=== PATIENT | male | born 1995 | race Caucasian/White ===

== ENCOUNTER 2018-10-04 12:31 | Inpatient (IN) | payer BC, OTHER ==
[~2018-10-04] VITALS: Ht 185.4 cm; Wt 56.7 kg
[2018-10-04] MEDS ORDERED: DICYCLOMINE HCL 20 MG TABLET PO PRN (14:30)
[2018-10-04] MEDS ORDERED: LOPERAMIDE HCL 2 MG CAPSULE PO PRN ×2 (14:30)
[2018-10-04] MEDS ORDERED: DIAZEPAM 10 MG TABLET PO PRN ×2 (14:30)
[2018-10-04] MEDS ORDERED: MIRALAX 17 GM POWD.PACK PO PRN (14:30)
[2018-10-04] MEDS ORDERED: MAG HYDROX/AL HYDROX/SIMETH 30 ML LIQUID UDC PO PRN (14:30)
[2018-10-04] MEDS ORDERED: 5 DAY TAPER VALIUM-SERENITY PROTOCOL PO PRN (14:30)
[2018-10-04] MEDS ORDERED: LORAZEPAM 2 MG/1 ML VIAL IM PRN (14:30)
[2018-10-04] MEDS ORDERED: BUPRENORPHINE HCL 2 MG TAB.SUBL SL PRN (14:30)
[2018-10-04] MEDS: MULTIVITAMINS,THERAPEUTIC TABLET PO SCH (14:30)
[2018-10-04] MEDS ORDERED: MAGNESIUM HYDROXIDE 30 ML LIQUID UDC PO PRN (14:30)
[2018-10-04] MEDS ORDERED: ONDANSETRON 4 MG/2 ML VIAL IM PRN (14:30)
[2018-10-04] MEDS ORDERED: DIAZEPAM 5 MG TABLET PO PRN (14:30)
[2018-10-04 14:48] VITALS: BP 135/69
[2018-10-04 17:10] VITALS: BP 134/86
[2018-10-04] MEDS: DIAZEPAM 10 MG TABLET PO SCH ×2 (17:14→20:57)
[2018-10-04 17:32] LABS: *AMPHETAMINE, URINE POSITIVE (NEGATIVE); *BARBITURATE, URINE NEGATIVE (NEGATIVE); *CANNABINOID, URINE NEGATIVE (NEGATIVE); *COCCAINE, URINE NEGATIVE (NEGATIVE); *OPIATE, URINE POSITIVE (NEGATIVE); *PHENCYCLIDINE SCREEN,URINE NEGATIVE (NEGATIVE)
[2018-10-04 19:28] LABS: BASOPHILS # (AUTO) 0.1 K/uL (0.0-8.0); BASOPHILS % (AUTO) 0.6 % (0.0-2.0); EOSINOPHILS # (AUTO) 0.2 K/uL (0.0-0.7); HEMATOCRIT 41.2 % (36.7-47.1); HEMOGLOBIN 14.3 g/dL (12.5-16.3); LYMPHOCYTES # (AUTO) 2.3 K/uL (20.0-40.0); LYMPHOCYTES % (AUTO) 22.8 % (20.5-51.5); MEAN CORPUSCULAR HEMOGLOBIN 30.8 uug (23.8-33.4); MEAN CORPUSCULAR HGB CONC 35 g/dL (32.5-36.3); MEAN CORPUSCULAR VOLUME 88.7 fL (73.0-96.2); MONOCYTES # (AUTO) 0.6 K/uL (2.0-10.0); MONOCYTES % (AUTO) 6.3 % (0.0-11.0); NEUTROPHILS # (AUTO) 6.9 K/uL (1.8-8.9); NEUTROPHILS % (AUTO) 68.3 % (38.5-71.5); PLATELET COUNT (AUTO) 270 K/uL (152-348); RED BLOOD CELL COUNT(AUTO) 4.65 MIL/uL (4.06-5.63); WHITE BLOOD COUNT (AUTO) 10.1 K/uL (3.6-10.2)
[2018-10-04 19:41] LABS: ALANINE AMINOTRANSFERASE 21 U/L (16-63); ALKALINE PHOSPHATASE 99 U/L (50-136); ASPARTATE AMINOTRANSFERASE 16 U/L (15-37); BILIRUBIN,TOTAL 0.3 mg/dL (0.2-1.0); CARBON DIOXIDE 30 mmol/L (21-32); CHLORIDE 103 mmol/L (98-107); CREATININE 0.8 mg/dL (0.6-1.3); GLUCOSE 115 mg/dL (74-106); MAGNESIUM 1.9 mg/dL (1.8-2.4); POTASSIUM 3.7 mmol/L (3.5-5.1); UREA NITROGEN, BLOOD 10 mg/dL (7-18)
[2018-10-04 19:47] LABS: ETHANOL < 3 MG/DL (0-0)
[2018-10-04 19:53] LABS: THYROID STIMULATING HORMONE 1.263 mIU/mL (0.358-3.740)
[2018-10-04 20:56] VITALS: BP 132/89
[2018-10-05 00:30] VITALS: BP 112/71
[2018-10-05 04:27] VITALS: BP 108/69
[2018-10-05 08:00] VITALS: BP 109/71
[2018-10-05] MEDS: DIAZEPAM 5 MG TABLET PO SCH ×4 (08:33→20:42)
[2018-10-05] MEDS: IBUPROFEN 600 MG TABLET PO PRN ×2 (08:33→20:41)
[2018-10-05] MEDS: MULTIVITAMINS,THERAPEUTIC TABLET PO SCH (08:33)
[2018-10-05] MEDS: METHOCARBAMOL 750 MG TABLET PO PRN ×2 (08:34→20:42)
[2018-10-05] MEDS: ONDANSETRON ODT 4 MG TAB.RAPDIS SL PRN (08:37)
[2018-10-05] MEDS: BUPRENORPHINE HCL 2 MG TAB.SUBL SL SCH ×3 (08:37→20:42)
[2018-10-05] MEDS ORDERED: 4 DAY TAPER BUPRENORPHINE -SERENITY PROTOCOL SL PRN (09:00)
[2018-10-05] MEDS ORDERED: TUBERCULIN,PURIF.PROT.DERIV. 5 TU/0.1 ML TEST ID ONE (09:00)
[2018-10-05 12:00] VITALS: BP 115/52
[2018-10-05] MEDS: ACETAMINOPHEN 325 MG TABLET PO PRN (12:41)
[2018-10-05] MEDS: HYDROXYZINE PAMOATE 25 MG CAPSULE PO PRN (14:27)
[2018-10-05 16:00] VITALS: BP 125/66
[2018-10-05 20:00] VITALS: BP 113/57
[2018-10-05] MEDS: diphenhydrAMINE 50 MG CAPSULE PO PRN (20:42)
[2018-10-06 08:00] VITALS: BP 111/62
[2018-10-06] MEDS ORDERED: BUPRENORPHINE HCL 2 MG TAB.SUBL SL SCH (09:00)
[2018-10-06] MEDS: DIAZEPAM 5 MG TABLET PO SCH ×3 (09:12→21:29)
[2018-10-06] MEDS: MULTIVITAMINS,THERAPEUTIC TABLET PO SCH (09:12)
[2018-10-06 11:09] LABS: HEPATITIS B SURFACE AG Negative (Negative)
[2018-10-06 12:00] VITALS: BP 110/60
[2018-10-06] MEDS: METHOCARBAMOL 750 MG TABLET PO PRN ×2 (12:26→21:29)
[2018-10-06] MEDS: CLONIDINE HCL 0.1 MG TABLET PO PRN ×2 (12:26→21:30)
[2018-10-06] MEDS: HYDROXYZINE PAMOATE 25 MG CAPSULE PO PRN (12:26)
[2018-10-06] MEDS: IBUPROFEN 600 MG TABLET PO PRN (12:26)
[2018-10-06] MEDS: BUPRENORPHINE HCL 2 MG TAB.SUBL SL SCH ×2 (14:58→21:30)
[2018-10-06 16:00] VITALS: BP 115/62
[2018-10-06 20:00] VITALS: BP 118/77
[2018-10-06] MEDS: diphenhydrAMINE 50 MG CAPSULE PO PRN (21:29)
[2018-10-07 08:00] VITALS: BP 112/63
[2018-10-07] MEDS: DIAZEPAM 5 MG TABLET PO SCH ×2 (08:56→21:24)
[2018-10-07] MEDS: MULTIVITAMINS,THERAPEUTIC TABLET PO SCH (08:56)
[2018-10-07] MEDS: BUPRENORPHINE HCL 2 MG TAB.SUBL SL SCH ×3 (08:58→21:24)
[2018-10-07] MEDS: METHOCARBAMOL 750 MG TABLET PO PRN ×2 (08:58→21:24)
[2018-10-07 12:00] VITALS: BP 118/52
[2018-10-07] MEDS: ACETAMINOPHEN 325 MG TABLET PO PRN (12:54)
[2018-10-07 16:00] VITALS: BP 91/59
[2018-10-07 20:00] VITALS: BP 96/60
[2018-10-07 21:30] VITALS: BP 115/63
[2018-10-08 08:00] VITALS: BP 110/58
[2018-10-08] MEDS: METHOCARBAMOL 750 MG TABLET PO PRN ×2 (08:41→20:08)
[2018-10-08] MEDS: IBUPROFEN 600 MG TABLET PO PRN ×2 (08:42→21:52)
[2018-10-08] MEDS: MULTIVITAMINS,THERAPEUTIC TABLET PO SCH (08:42)
[2018-10-08] MEDS: ONDANSETRON ODT 4 MG TAB.RAPDIS SL PRN (08:42)
[2018-10-08] MEDS ORDERED: BUPRENORPHINE HCL 2 MG TAB.SUBL SL SCH (09:00)
[2018-10-08] MEDS ORDERED: DIAZEPAM 5 MG TABLET PO SCH (09:00)
[2018-10-08 12:00] VITALS: BP 115/53
[2018-10-08] MEDS ORDERED: DIPH50CA37 PO (14:10)
[2018-10-08] MEDS ORDERED: NALO4SPR NS (14:10)
[2018-10-08] MEDS ORDERED: HYDR-3895 PO (14:10)
[2018-10-08] MEDS ORDERED: METH-406 PO (14:10)
[2018-10-08] MEDS ORDERED: ONDA4TAB11 SL (14:10)
[2018-10-08] MEDS ORDERED: CLON0.1T14 PO (14:10)
[2018-10-08 16:00] VITALS: BP 114/56
[2018-10-08 20:00] VITALS: BP 118/64
[2018-10-08] MEDS: CLONIDINE HCL 0.1 MG TABLET PO PRN (20:08)
[2018-10-08] MEDS: ACETAMINOPHEN 325 MG TABLET PO PRN (21:52)
[2018-10-08] MEDS: diphenhydrAMINE 50 MG CAPSULE PO PRN (21:52)
[2018-10-09] VITALS: BP 114/59
[2018-10-09 08:00] VITALS: BP_SYST 110; BP_SYST 118; BP_DIAS 62; BP_DIAS 64
== END 2018-10-09 10:30 | disposition other institution (70) | DRG 895 ==
LOC: SRC 13:26
PROVIDERS: ADMIT Family Medicine Addiction Medicine; ATTEND Family Medicine Addiction Medicine
PROC: HZ2ZZZZ Detoxification Services for Substance Abuse Treatment (ICD-10-PCS; principal; 2018-10-04)
PROC: HZ31ZZZ Individual Counseling for Substance Abuse Treatment, Behavioral (ICD-10-PCS; 2018-10-06)
DX: F10.230 Alcohol dependence with withdrawal, uncomplicated (principal); F11.23 Opioid dependence with withdrawal; Y90.0 Blood alcohol level of less than 20 mg/100 ml; F15.23 Other stimulant dependence with withdrawal; F13.230 Sedative, hypnotic or anxiolytic dependence with withdrawal, uncomplicated; F41.1 Generalized anxiety disorder; F17.210 Nicotine dependence, cigarettes, uncomplicated; Z91.013 Allergy to seafood; Z81.8 Family history of other mental and behavioral disorders; Z59.0 Homelessness; F14.10 Cocaine abuse, uncomplicated; J02.9 Acute pharyngitis, unspecified; Z20.5 Contact with and (suspected) exposure to viral hepatitis
CPT/HCPCS: 36415; 80307; 83735; 84443; 85025; 86403; 86580; 86592; 86705; 86803; 87070; 87340; 87806; A4663; G0480; Q0162; Q0163